=== PATIENT | female | born 1990 | race Hispanic/Latino ===

== ENCOUNTER 2023-02-20 20:41 | Emergency (ER) | payer OTHER ==
[~2023-02-20] VITALS: Ht 167.6 cm; Wt 113.9 kg
[2023-02-20 20:42] VITALS: BP 130/72; TEMP 98.6; O2SAT 98
[2023-02-20] MEDS ORDERED: cefTRIAXone 500MG VIAL IM ONE (21:25)
[2023-02-20] MEDS ORDERED: HEPATITIS B VACCINE 10 MCG/0.5 ML SYRINGE (FOR ALL OTHER PTS) IM.IMMUN ONE (21:25)
[2023-02-20] MEDS ORDERED: DOXYCYCLINE HYCLATE 100MG TABLET PO ONE (21:25)
[2023-02-20] MEDS ORDERED: LIDOCAINE 1% SDV 5ML VIAL DILUENT ONE (21:25)
[2023-02-20] MEDS ORDERED: metroNIDAZOLE (FLAGYL) 500MG TABLET PO ONE (21:30)
[2023-02-20] MEDS ORDERED: HEPATITIS B VACCINE 20MCG/ML 1ML SYRINGE (ADULT DOSE) IM.IMMUN ONE (21:50)
[2023-02-20] MEDS ORDERED: DOXY100C82 PO (21:51)
[2023-02-20 22:22] LABS: BASO % 0.5 % (0.0-1.0); EOS # 0.1 10^3/uL (0.0-0.5); EOS % 0.7 % (0.0-3.0); HEMATOCRIT 36.4 % (36.0-47.0); HEMOGLOBIN 11.8 g/dl (12.0-15.5); LYMPH # 2.4 10^3/uL (1.5-5.0); LYMPH % 32.3 % (24.0-44.0); MEAN CORPUSCULAR HEMOGLOBIN 25.2 pg (27.0-33.0); MEAN CORPUSCULAR HGB CONC 32.4 g/dl (32.0-36.5); MEAN CORPUSCULAR VOLUME 77.6 fl (80.0-96.0); MONO # 0.3 10^3/uL (0.0-0.8); MONO % 4.4 % (2.0-8.0); NEUTROPHILS # 4.6 10^3/uL (1.5-8.5); NEUTROPHILS % 61.8 % (36.0-66.0); PLATELET COUNT, AUTOMATED 319 10^3/uL (150-450); RED BLOOD COUNT 4.69 10^6/uL (4.00-5.40); WHITE BLOOD COUNT 7.4 10^3/uL (4.0-10.0)
[2023-02-20 22:42] LABS: AMPHETAMINES LEVEL URINE NEGATIVE (NEGATIVE); BARBITURATES URINE NEGATIVE (NEGATIVE); BENZODIAZEPINES URINE NEGATIVE (NEGATIVE); CANNABINOIDS URINE NEGATIVE (NEGATIVE); COCAINE METABOLITE URINE NEGATIVE (NEGATIVE); METHADONE URINE NEGATIVE (NEGATIVE); OPIATES URINE NEGATIVE (NEGATIVE); PHENCYCLIDINE URINE NEGATIVE (NEGATIVE)
[2023-02-20 23:06] LABS: HEPATITIS B SURFACE ANTIGEN NEGATIVE (NEGATIVE)
[2023-02-20 23:19] LABS: HIV 1&2 SCREEN NEGATIVE (NEGATIVE)
[2023-02-20 23:21] LABS: ALBUMIN 3.9 G/DL (3.2-5.2); ALKALINE PHOSPHATASE 139 U/L (46-116); ALT/SGPT 45 U/L (7.0-40); AST/SGOT 15 U/L (<34); BILIRUBIN,TOTAL 0.2 MG/DL (0.3-1.2); BLOOD UREA NITROGEN 11 MG/DL (9-23); CALCIUM LEVEL 9.1 MG/DL (8.5-10.1); CARBON DIOXIDE LEVEL 25 MMOL/L (20-31); CHLORIDE LEVEL 106 MMOL/L (98-107); CREATININE FOR GFR 0.62 MG/DL (0.55-1.30); GLOMERULAR FILTRATION RATE > 60.0 (>60); GLUCOSE, FASTING 99 MG/DL (60-100); POTASSIUM SERUM 4.1 MMOL/L (3.5-5.1); SODIUM LEVEL 139 MMOL/L (136-145); TOTAL PROTEIN 7.4 G/DL (5.7-8.2)
[2023-02-20 23:28] LABS: HEPATITIS C VIRUS ABY INDEX 0.2 INDEX (<0.8)
[2023-02-20 23:40] LABS: GC DNA AMPLIFICATION NEGATIVE (NEGATIVE)
[2023-02-21 00:05] LABS: HEPATITIS B SURFACE ANTIBODY NEGATIVE (POSITIVE)
[2023-02-21 00:10] LABS: HCG, SERUM QUALITATIVE NEGATIVE (NEGATIVE)
[2023-02-21] MEDS ORDERED: ONDANSETRON 4MG ORAL DISINTEGRATING TAB PO ONE (01:15)
== END 2023-02-21 01:41 | disposition home or self-care (01) ==
LOC: M ED 20:41
DX: Z04.41 Encounter for examination and observation following alleged adult rape (principal); N92.6 Irregular menstruation, unspecified; D64.9 Anemia, unspecified; Z98.84 Bariatric surgery status
CPT/HCPCS: 80053; 80307; 84703; 85025; 86706; 86780; 86803; 87340; 87389; 87661; 87810; 87850; 90746; 96372; 99284; J0696